=== PATIENT | male | born 1990 | race Caucasian/White ===

== ENCOUNTER 2017-09-10 08:33 | Emergency (ER) | payer BC ==
[~2017-09-10] VITALS: Ht 185.4 cm; Wt 146.0 kg
[~2017-09-10 08:33] MED LIST: NO HOME MEDS
[2017-09-10] MEDS ORDERED: FIORICET 50-301 EAC1 PO (10:25)
[2017-09-10 10:38] VITALS: BP 132/78
== END 2017-09-10 10:39 | disposition home or self-care (01) ==
LOC: EME 08:33
DX: R51 Headache (principal); I10 Essential (primary) hypertension; F41.9 Anxiety disorder, unspecified
CPT/HCPCS: J1885